=== PATIENT | male | born 1955 | race Caucasian/White ===

== ENCOUNTER 2021-07-11 15:52 | Emergency (ER) | payer MEDICARE, BC ==
[2021-07-11 16:39] LABS: ANION GAP 14.5 mEq/L (7-13); CHLORIDE,CL 104 mmol/L (98-107); SODIUM,NA 142 mmol/L (136-145)
[2021-07-11 17:16] VITALS: BP 146/121; PULSE 92
== END 2021-07-11 20:00 ==
LOC: DL.ED 15:52
DX: I69.320 Aphasia following cerebral infarction (principal)
CPT/HCPCS: 36415; 70450; 80053; 80307; 82947; 84443; 84484; 85025; 86140; 93005; 99285-25

== ENCOUNTER 2021-12-24 17:20 | Emergency (ER) | payer MEDICARE, BC ==
[2021-12-24] MEDS ORDERED: Sodium Chloride 0.9% 10 ML Syringe FLUSH PRN (18:46)
[2021-12-24 19:20] VITALS: BP 127/69; PULSE 72
[2021-12-24 19:24] LABS: ANION GAP 13.2 mEq/L (7-13)
== END 2021-12-24 19:40 | disposition home or self-care (01) ==
LOC: DL.ED 17:20
DX: E87.5 Hyperkalemia (principal); I10 Essential (primary) hypertension; Z79.82 Long term (current) use of aspirin; Z79.899 Other long term (current) drug therapy; Z87.891 Personal history of nicotine dependence
CPT/HCPCS: 36415; 80053; 85025; 93005; 99283; J3490